=== PATIENT | female | born 1985 | race Hispanic/Latino ===

== ENCOUNTER 2021-10-31 05:23 | Inpatient (IN) | payer OTHER ==
[2021-10-29 13:12] LABS: BASOPHILS # (AUTO) 0.1 (0.0-0.1); BASOPHILS % 0.6 % (0.0-1.0); EOSINOPHILS # (AUTO) 0.1 (0.0-0.4); EOSINOPHILS % 0.8 % (0.0-6.0); HEMOGLOBIN 13.2 g/dL (12.0-16.0); LYMPHOCYTES # (AUTO) 2.7 (1.0-3.2); LYMPHOCYTES % 22.8 % (18.0-39.1); MEAN CORPUSCULAR HEMOGLOBIN 28.9 pg (28-32); MEAN CORPUSCULAR HGB CONC 31.4 g/dL (31-35); MEAN CORPUSCULAR VOLUME 92.1 fL (81-99); MONOCYTES # (AUTO) 0.7 (0.2-0.8); MONOCYTES % 5.9 % (4.4-11.3); NEUTROPHILS # (AUTO) 8.3 (2.1-6.9); NEUTROPHILS % 69.6 % (38.7-80.0); PLATELET COUNT 347 x10e3/uL (140-360); RED BLOOD COUNT 4.56 x10e6/uL (3.6-5.1); RED CELL DISTRIBUTION WIDTH 13.1 % (11.7-14.4)
[2021-10-29 13:15] LABS: CLARITY,URINE CLEAR (CLEAR); COLOR,URINE YELLOW (YELLOW); LEUKOCYTE ESTERASE ,URINE NEGATIVE (NEGATIVE); NITRITE,URINE NEGATIVE (NEGATIVE); PROTEIN,URINE DIPSTICK NEGATIVE (NEGATIVE)
[2021-10-29 13:16] LABS: KETONES,URINE NEGATIVE (NEGATIVE); URINE UROBILINOGEN 1 mg/dL (0.2 - 1)
[2021-10-29 14:39] LABS: HIV 1&2 AB SCREEN NON-REACTIVE (NONREACTIVE)
[~2021-10-31] VITALS: Ht 175.3 cm; Wt 95.7 kg
[~2021-10-31 05:23] MED LIST: ALEVE220 M1; HAIR SKIN NAIL1 EACH; MULTIVITAMIN1 EACH; OMEGA 3 1,0001 EACH PO; VITAMIN D; ZOLOFT50 MG PO
[2021-10-31] MEDS ORDERED: BUPIVACAINE LIPOSOME/PF 266 MG/20 ML IJ ONE (07:10)
[2021-10-31] MEDS ORDERED: NALOXONE HCL INJ 0.4 MG/ML AMP IV PRN (10:30)
[2021-10-31] MEDS ORDERED: BISACODYL 10 MG SUPP PR PRN (10:30)
[2021-10-31] MEDS ORDERED: DIPHENHYDRAMINE HCL 25 MG CAP PO PRN ×2 (10:30)
[2021-10-31] MEDS ORDERED: ONDANSETRON HCL INJ 2MG/ML 2ML 2 MG/ML VIAL IV PRN (10:30)
[2021-10-31] MEDS ORDERED: DIPHENHYDRAMINE HCL INJ 50 MG/ML VIAL IM PRN (10:30)
[2021-10-31] MEDS ORDERED: DOCUSATE SODIUM 100 MG CAP PO PRN (10:30)
[2021-10-31] MEDS ORDERED: BISACODYL 5 MG TAB EC PO PRN (10:30)
[2021-10-31] MEDS ORDERED: FENTANYL CITRATE/PF 100MCG/2 ML INJ ONE ×2 (10:41→13:13)
[2021-10-31] MEDS: HYDROMORPHONE 0.2MG/ML-SOD CHL 30ML PCA SYRINGE IV PRN ×2 (10:41→22:34)
[2021-10-31 12:45] VITALS: BP 112/66
[2021-10-31] MEDS ORDERED: ATROPINE SULFATE 1 MG/ML VIAL ONE (12:56)
[2021-10-31] MEDS ORDERED: LIDOCAINE HCL 2% LOCAL INJ 5 ML SDV VIAL INJ ONE (12:56)
[2021-10-31] MEDS ORDERED: NEOSTIGMINE 1 MG/ML 10ML VIAL ONE (12:56)
[2021-10-31] MEDS ORDERED: ROCURONIUM BROMIDE 10 MG/ML 5ML VIAL IV ONE (12:56)
[2021-10-31] MEDS ORDERED: ONDANSETRON HCL INJ 2MG/ML 2ML 2 MG/ML VIAL ONE (12:56)
[2021-10-31] MEDS ORDERED: PROPOFOL IV EMULSION 10 MG/ML 20 ML VIAL ONE (12:56)
[2021-10-31] MEDS ORDERED: POVIDONE IODINE 0.05% 0.05 % ML PO ONE (12:56)
[2021-10-31] MEDS ORDERED: EPHEDRINE SULFATE INJ 50 MG/ML VIAL ONE (12:56)
[2021-10-31] MEDS ORDERED: SEVOFLURANE INHAL SOLN 250 ML PEN BTL ONE (12:56)
[2021-10-31] MEDS ORDERED: DEXAMETHASONE SOD PHOS INJ 4 MG/ML SDV ONE (12:56)
[2021-10-31] MEDS ORDERED: KETOROLAC TROMETHAMINE 30 MG/ML VIAL ONE (12:56)
[2021-10-31 13:06] VITALS: BP 117/70
[2021-10-31] MEDS ORDERED: MIDAZOLAM HCL 2 MG/2 ML VIAL ONE (13:13)
[2021-10-31] MEDS: DEXTROSE 5%/LACTATED RINGERS 1,000 ML IV SCH ×2 (13:40→21:09)
[2021-10-31] MEDS: Cefoxitin 2 G in SODIUM CHLORIDE 0.9% 100 ML IV SCH ×3 (13:40→23:20)
[2021-10-31 16:43] VITALS: BP 108/66
[2021-10-31 19:50] VITALS: BP 100/64
[2021-10-31 20:11] VITALS: BP 100/64
[2021-10-31] MEDS ORDERED: ZOLPIDEM TARTRATE 5 MG TAB PO PRN (21:00)
[2021-11-01] VITALS (7 sets, daily range): BP systolic 91–113; BP diastolic 54–66
[2021-11-01 05:17] LABS: BASOPHILS % 0.3 % (0.0-1.0); EOSINOPHILS % 0.3 % (0.0-6.0); HEMATOCRIT 34.2 % (34.2-44.1); LYMPHOCYTES # (AUTO) 2.6 (1.0-3.2); MEAN CORPUSCULAR HEMOGLOBIN 29.2 pg (28-32); MEAN CORPUSCULAR HGB CONC 32.2 g/dL (31-35); MEAN CORPUSCULAR VOLUME 90.7 fL (81-99); MONOCYTES # (AUTO) 0.8 (0.2-0.8); NEUTROPHILS # (AUTO) 7.4 (2.1-6.9); NEUTROPHILS % 67.9 % (38.7-80.0); PLATELET COUNT 259 x10e3/uL (140-360); RED BLOOD COUNT 3.77 x10e6/uL (3.6-5.1)
[2021-11-01 06:00] LABS: ANION GAP 9.9 mmol/L (8-16); CALCIUM 7.9 mg/dL (8.4-10.2); CREATININE, SERUM 0.57 mg/dL (0.57-1.11); POTASSIUM 3.9 mmol/L (3.5-5.1)
[2021-11-01] MEDS: Cefoxitin 2 G in SODIUM CHLORIDE 0.9% 100 ML IV SCH ×3 (06:15→17:31)
[2021-11-01] MEDS: DEXTROSE 5%/LACTATED RINGERS 1,000 ML IV SCH (06:15)
[2021-11-01] MEDS ORDERED: IBUPROFEN 400 MG TAB PO PRN (09:15)
[2021-11-01] MEDS: ONDANSETRON HCL INJ 2MG/ML 2ML 2 MG/ML VIAL IV PRN ×2 (11:18→21:22)
[2021-11-01] MEDS: KETOROLAC TROMETHAMINE 30 MG/ML VIAL IV PRN (13:47)
[2021-11-01] MEDS: HYDROCODONE/APAP 5MG-325MG TAB PO PRN ×2 (16:05→21:22)
[2021-11-01] MEDS: DOCUSATE SODIUM 100 MG CAP PO SCH (21:00)
[2021-11-02] VITALS: BP 110/63
[2021-11-02] MEDS: Cefoxitin 2 G in SODIUM CHLORIDE 0.9% 100 ML IV SCH ×3 (00:35→11:36)
[2021-11-02 04:00] VITALS: BP 111/78
[2021-11-02 08:16] VITALS: BP 122/79
[2021-11-02 08:24] VITALS: BP 122/79
[2021-11-02] MEDS: DOCUSATE SODIUM 100 MG CAP PO SCH (08:51)
[2021-11-02 12:16] VITALS: BP 101/68
[2021-11-02 15:28] VITALS: BP 102/67
[2021-11-02] MEDS: KETOROLAC TROMETHAMINE 30 MG/ML VIAL IV PRN (16:25)
== END 2021-11-02 16:51 | disposition home or self-care (01) | DRG 743 ==
LOC: OR 05:23 → PACU V 10:24 → MED/SURG 12:46
PROVIDERS: ADMIT Specialist; ATTEND Specialist
PROC: 0UT70ZZ Resection of Bilateral Fallopian Tubes, Open Approach (ICD-10-PCS; 2021-10-31)
PROC: 0UT90ZL Resection of Uterus, Supracervical, Open Approach (ICD-10-PCS; principal; 2021-10-31 08:02)
DX: D25.9 Leiomyoma of uterus, unspecified (principal); N92.0 Excessive and frequent menstruation with regular cycle; Z20.822 Contact with and (suspected) exposure to COVID-19; N83.11 Corpus luteum cyst of right ovary
CPT/HCPCS: 36415; 71046; 80048; 81003; 84702; 85025; 86850; 86900; 87390; 88307; 93005; 94799; G0433; G0435; J0461; J0694; J1100; J1885; J2001; J2250; J2405; J2710; J3010; J7050; U0002